=== PATIENT | female | born 1990 | race Caucasian/White ===

== ENCOUNTER 2023-12-12 14:38 | Emergency (ER) | payer MEDICAID, OTHER ==
[2023-12-12 15:00] VITALS: TEMP 98.4
--- NOTE | 2023-12-12 15:03 | ERPHSYRPT ---
- History of Present Illness Time Seen by Provider: 12/12/23 14:53 Source: patient Exam Limitations: no limitations Physician History: Pt states her shoe rubbed on the posterior aspect of her left ankle 7 days ago and 3 days ago her left foot started swelling with erythema yesterday. Pt also c/o a subjective fever yesterday; denies chest pain, nausea, shortness of air, abdominal pain. Allergies/Adverse Reactions: Penicillins Allergy (Verified 12/12/23 14:51) - Review of Systems Constitutional: Fever Respiratory: No Dyspnea Cardiac: No Chest Pain Abdominal/Gastrointestinal: No Abdominal Pain, No Nausea, No Vomiting Musculoskeletal: Other (redness & swelling of left foot/ankle) Neurological: No Headache - Nursing Vital Signs Nursing Vital Signs: Initial Vital Signs Temperature 98.4 F 12/12/23 14:52 Pulse Rate 109 H 12/12/23 14:52 Respiratory Rate 18 12/12/23 14:52 Blood Pressure 130/85 12/12/23 14:52 O2 Sat by Pulse Oximetry 97 12/12/23 14:52 Pain Scale Pain Intensity 8 - Physical Exam General Appearance: alert Eyes, Ears, Nose, Throat Exam: pharynx normal Neck Exam: normal inspection Cardiovascular/Respiratory Exam: normal breath sounds, heart sounds normal Gastrointestinal/Abdominal Exam: soft (B.S. normal) Hips Exam: left: normal range of motion Legs Exam: left leg: normal range of motion Knees Exam: left knee: normal range of motion Ankle Exam: left ankle: normal range of motion, swelling (mild edema & erythema with red streaking up lateral lower leg ~ 10 cm) Foot Exam: left foot: swelling (mild edema & erythema) Neuro/Tendon Exam: normal sensation, normal motor functions Mental Status Exam: alert, cooperative Skin Exam: No cyanosis SpO2 Interpretation: normal SpO2: 97 O2 Delivery: Room Air Ordered Tests: Active Orders 24 hr Category Date Time Status IV Insertion STAT Care 12/12/23 15:05 Active Medication Summary Generic Name Dose Route Start Last Admin Trade Name Freq PRN Reason Stop Dose Admin Clindamycin HCl/Dextrose 600 mg in 50 mls @ 100 mls/hr 12/12/23 15:05 12/12/23 15:20 Clindamycin-D5w 600 Mg/50 Ml IV 12/12/23 15:34 100 ml/hr STAT STA 100 mls/hr Administration Discontinued Medications Generic Name Dose Route Start Last Admin Trade Name [place] PRN Reason Stop Dose Admin Clindamycin HCl/Dextrose Confirm 12/12/23 15:19 Clindamycin-D5w 600 Mg/50 Ml Administered 12/12/23 15:20 Dose 600 mg in 50 mls @ ud IV .STK-MED ONE - Progress Progress: unchanged Progress Note: 12/12/23 15:33 Pt refuses cbc & cmp. Counseled pt/family regarding: need for follow-up - Departure Departure Disposition: Home Clinical Impression: Cellulitis of left foot/ankle, Acute lymphangitis of left ankle Condition: Stable Critical Care Time: No Instructions: Cellulitis (Skin Infection), Adult (DC) Additional Instructions: Elevate left foot above heart level for the next 24 hours. Follow up with private doctor tomorrow. Forms: Work/School Release Form Prescriptions: clindamycin HCL [Clindamycin HCl] 300 mg PO Q6H #40 cap
[2023-12-12] MEDS ORDERED: CLINDAMYCIN-D5W 600 MG/50 ML*** 600 MG/50 ML BAG IV ONE (15:19)
[2023-12-12] MEDS: CLINDAMYCIN-D5W 600 MG/50 ML*** 600 MG/50 ML BAG IV STA (15:20)
[2023-12-12 15:22] VITALS: BP 116/69; PULSE 96; RESP 20
[2023-12-12 15:38] VITALS: O2SAT 97
== END 2023-12-12 15:55 | disposition home or self-care (01) ==
LOC: ED 14:38
DX: L03.116 Cellulitis of left lower limb (principal); L03.126 Acute lymphangitis of left lower limb; R50.9 Fever, unspecified
CPT/HCPCS: 96365; 99283